=== PATIENT | female | born 1970 | race Caucasian/White ===

== ENCOUNTER 2024-08-21 13:36 | Emergency (ER) | payer MEDICAID, SELFPAY ==
[2024-08-21 13:38] VITALS: BMI 34.4
[2024-08-21 13:51] VITALS: BP 105/79; PULSE 108; RESP 18; TEMP 36.4; O2SAT 95
--- NOTE | 2024-08-21 13:52 | EDNOTE_ITS ---
ED Headache RME/HPI General Chief Complaint: Headache Stated Complaint: migraine Time Seen by Provider: 08/21/24 13:48 Arrival date/time: 08/21/24 13:36 54-year-old female with history of migraines presents emergency department complaint of headache patient reports is not the worst headache of her life patient reports no nausea or vomiting. Patient reports that she would like her headache cocktail and to be discharged home patient does not want any other further intervention Limitations: no limitations Related Data Home Medications ?Medication ?Instructions ?Recorded ?Confirmed montelukast 10 mg tablet 10 mg PO QPM 06/16/19 10/09/23 risperidone 1 mg tablet 1 tab PO HS 06/16/19 10/09/23 topiramate 50 mg tablet 50 mg PO HS 06/16/19 10/09/23 trazodone 50 mg tablet 100 mg PO HS 06/16/19 10/09/23 atorvastatin 20 mg tablet 20 mg PO QPM 01/28/22 10/09/23 Previous Rx's ?Medication ?Instructions ?Recorded amoxicillin 500 mg capsule 500 mg PO TID #30 caps 05/05/24 prednisone 50 mg tablet 50 mg PO QDAY #5 tabs 05/05/24 Allergies Allergy/AdvReac Type Severity Reaction Status Date / Time bee venom protein (honey bee) Allergy Severe Swelling Verified 05/05/24 16:37 of Lip/Tongue/Throat codeine Allergy Severe GI UPSET Verified 05/05/24 16:37 morphine Allergy Severe HALLUCINATE Verified 05/05/24 16:37 Review of Systems Review of Systems Systems Reviewed: All systems reviewed, normal except as documented Constitutional Constitutional: Reports system reviewed and no additional complaints, except as documented, Denies fever(s) and Reports headache(s) Eyes Eyes: Reports system reviewed and no additional complaints, except as documented and Denies blurry vision ENT Ears, Nose, Mouth, and Throat: Reports system reviewed and no additional complaints, except as documented, Denies dizziness, Reports headache(s), Denies nasal congestion and Denies nasal discharge Cardiovascular Cardiovascular: Reports system reviewed and no additional complaints, except as documented, Denies chest pain and Denies dyspnea Respiratory Respiratory: Reports system reviewed and no additional complaints, except as documented, Denies chest congestion, Denies cough and Denies dyspnea Gastrointestinal Gastrointestinal: Reports system reviewed and no additional complaints, except as documented and Denies abdominal pain Integumentary/Breasts Skin/Breast: Reports system reviewed and no additional complaints, except as documented and Denies rash Neurologic Neurologic: Reports system reviewed and no additional complaints, except as documented, Reports as per HPI, Denies dizziness and Reports headache(s) Past Medical History Past Medical History NEUROLOGIC: Negative Neurological Disorders CARDIAC: Negative Cardiac Disorders ED Exam General Limitations: Present no limitations General appearance: Present alert and in no apparent distress Head Head exam: Present atraumatic, normocephalic and normal inspection Eye Eye exam: Present normal appearance, PERRL and EOMI; Absent conjunctival injection ENT ENT exam: Present normal exam, normal oropharynx and mucous membranes moist Neck Neck exam: Present normal inspection, full ROM and trachea midline Chest Chest inspection: Present normal inspection and symmetric chest wall rise Respiratory Respiratory exam: Present normal lung sounds bilaterally; Absent respiratory distress Cardiovascular Cardiovascular exam: Present regular rate, normal rhythm and normal heart sounds Abdominal Exam Abdominal exam: Present soft and normal bowel sounds Extremities Exam Extremities exam: Present normal inspection and full ROM Back Exam Back exam: Present normal inspection and full ROM Neurological Exam Neurological exam: Present alert, oriented X3, CN II-XII intact, normal gait and reflexes normal; Absent motor sensory deficit Psychiatric Psychiatric exam: Present normal affect and normal mood Skin Skin exam: Present warm, dry, intact and normal color Course Quality Measures none Orders Category Date Time Status DiphenhydrAMINE INJ [Benadryl Inj] Med 08/21/24 13:51 Discontinued 25 mg IM X1 ONE Ketorolac Inj [Toradol Inj] Med 08/21/24 13:51 Discontinued 30 mg IM X1 ONE Promethazine Inj [Phenergan Inj] Med 08/21/24 13:51 Discontinued 12.5 mg IM X1 ONE Vital Signs Vital signs: Vital Signs Temperature 97.5 F 08/21/24 13:51 Pulse Rate 108 H 08/21/24 13:51 Respiratory Rate 18 08/21/24 13:51 Blood Pressure 105/79 08/21/24 13:51 Pulse Oximetry (%) 95 08/21/24 13:51 Oxygen Delivery Method Room Air 08/21/24 13:51 O2 saturation 95% room air within normal limits Headache MDM Narrative MDM Narrative:: 54-year-old female with history of migraines presents emergency department complaint of headache patient reports is not the worst headache of her life patient reports no nausea or vomiting. Patient reports that she would like her headache cocktail and to be discharged home patient does not want any other further intervention On exam patient well-appearing patient does not appear ill or toxic patient walks with steady gait: Patient has no abnormal neurological findings Patient medicated here discharged home Patient discharged home in no distress to follow-up with primary care doctor in the next 24 to 48 hours and for any worsening symptoms to return to the ER immediately Patient data External records reviewed:: [facility] previous records Clinical information provided by:: patient Social determinants that could affect healthcare access:: none Patient has the following chronic illnesses:: Headache How is presenting disease/condition affected by chronic disease/condition?: caused by Evaluation data The following diagnostics were reviewed and interpreted by me:: other (specify) (N/A) Lab and/or radiology exams considered but not ordered:: Consider not ordered Interpretation Summary: N/A Medications / Prescriptions Medications or Prescriptions considered but not ordered:: Given Medication administrations:: Medication Administration History Discontinued Medications Diphenhydramine HCl (Diphenhydramine Inj 50 Mg/Ml Vial) 25 mg IM X1 ONE Stop: 08/21/24 13:52 Last Admin: 08/21/24 13:55 Dose: 25 mg Documented By: CHANTEL Ketorolac Tromethamine (Ketorolac Inj 30 Mg/Ml Vial) 30 mg IM X1 ONE Stop: 08/21/24 13:52 Last Admin: 08/21/24 13:56 Dose: 30 mg Documented By: CHANTEL Promethazine HCl (Promethazine Inj 25 Mg/Ml Vial) 12.5 mg IM X1 ONE; Protocol Stop: 08/21/24 13:52 Last Admin: 08/21/24 14:04 Dose: 12.5 mg Documented By: CHANTEL Given Consultations Consultation(s) initiated? (list below): No Diagnosis Differential diagnosis headache: migraine, tension headache, subarachnoid hemorrhage and headache Most likely diagnosis given after review of the tests above:: Headache Admission Indicated Admission indicated?: not indicated Admission Request Was there a request for admission?: No Disposition Plan Disposition Plan: Discharge Discharge Attestation Discharge Attestation: The patient and all family members were given an opportunity to ask questions and understood the discharge instructions. Discharge instructions specifically effects, indications for sooner follow up or return to the emergency department, and the expected course of current diagnosis. Patient condition: Stable Discharge Plan Plan Patient Disposition: HOME (Self Care) Disposition Comment: Stable Prescriptions/Referrals Prescriptions/Med Rec: No Action trazodone 50 mg Tablet 100 mg PO HS montelukast 10 mg Tablet 10 mg PO QPM risperidone 1 mg Tablet 1 tab PO HS topiramate 50 mg Tablet 50 mg PO HS atorvastatin 20 mg Tablet 20 mg PO QPM prednisone 50 mg tablet 50 mg PO QDAY Qty: 5 0RF amoxicillin 500 mg capsule 500 mg PO TID Qty: 30 0RF Problem List Clinical Impression: Headache Patient/Caregiver Discharge Instructions Education Materials: Self-Care for Headaches Additional Instructions: Please follow up with your primary care doctor in the next 24-48hrs for any worsening symptoms return here immediately Print Language: Bengali Stand Alone Forms: Elsy Award Info., Patient Portal Info Letter MD Attestation MD Attestation The patient was seen by the midlevel practitioner. I, the co-signing physician, was present during the entire ER visit. While I did not physically examine the patient, I was available for consultation as needed.
[2024-08-21] MEDS: DiphenhydrAMINE INJ 50 MG/ML VIAL 25 MG IM (13:55)
[2024-08-21] MEDS: KETOROLAC INJ 30 MG/ML VIAL IM (13:56)
[2024-08-21] MEDS: PROMETHAZINE INJ 25 MG/ML VIAL 12.5 MG IM (14:04)
== END 2024-08-21 14:05 | disposition home or self-care (01) ==
LOC: SERX 14:07
PROVIDERS: Emergency Provider Emergency Medicine; PCP Family Medicine
DX: R51.9 Headache, unspecified (principal)
CPT/HCPCS: 96372; 99283; J1200; J1885; J2550

== ENCOUNTER 2024-09-04 10:42 | Emergency (ER) | payer MEDICAID, SELFPAY ==
[2024-09-04 11:29] VITALS: BP 112/82; PULSE 121; RESP 18; TEMP 36.7; O2SAT 95
[2024-09-04 11:51] VITALS: BMI 34.4
--- NOTE | 2024-09-04 11:58 | XR_ITS ---
Examination: CT abdomen and pelvis without contrast. Coronal 3-D reconstructions. Sagittal 2-D reconstructions. Date and time of exam:September 04, 2024 12:36 PM Indications: Left lower abdomen pain beginning yesterday CTDI: vol (mGy): 14.6 DLP: (mGycm): 757 Technique: Axial images of the abdomen have been obtained, 3 mm slice thickness Intravenous contrast material has not been administered. Low dose protocols were performed. One or more of the following dose reduction techniques were used; automated exposure control, adjustment of the mA and/or KV according to patient size, use of iterative reconstruction technique. Findings: Hepatomegaly 18 cm Diffuse fatty infiltration throughout the liver Absent gallbladder Spleen not enlarged No pancreatic or adrenal mass No renal or ureteral calculi, no hydronephrosis Aorta normal size No pericecal inflammatory change Colonic diverticulosis, no definite diverticulitis Moderate osteopenia No pelvic mass Impression: No renal or ureteral calculi, no hydronephrosis No CT findings of appendicitis or bowel obstruction Colonic diverticulosis, no diverticulitis No bladder mass or bladder calculi
--- NOTE | 2024-09-04 12:00 | EDNOTE_ITS ---
ED Back Injury Pain RME/HPI General Chief Complaint: Back Pain/Injury Stated Complaint: LEFT FLANK / LOWER BACK PAIN ESPECIALLY AFTER COUG Time Seen by Provider: 09/04/24 11:51 Arrival date/time: 09/04/24 10:42 RME / HPI RME / HPI Narrative: 54-year-old female patient with significant history of anxiety depression, came in for evaluation regarding leftflank pain. Onset of symptoms since yesterday as worsening left flank pain, described as pulsating, sharp pain, severity 10 out of 10 associated with nausea but denies any vomiting. Denies any fever denies any dysuria hematuria or other complaints. Patient denies any cough. No medication was tried at home. Patient's workup today all came back normal urinalysis no UTI no hematuria. CT scan of the abdomen and pelvis also came back unremarkable. Patient was given Toradol, [place] with significant improvement of pain. Results discussed with the patient. Related Data Home Medications ?Medication ?Instructions ?Recorded ?Confirmed montelukast 10 mg tablet 10 mg PO QPM 06/16/19 10/09/23 risperidone 1 mg tablet 1 tab PO HS 06/16/19 10/09/23 topiramate 50 mg tablet 50 mg PO HS 06/16/19 10/09/23 trazodone 50 mg tablet 100 mg PO HS 06/16/19 10/09/23 atorvastatin 20 mg tablet 20 mg PO QPM 01/28/22 10/09/23 Previous Rx's ?Medication ?Instructions ?Recorded amoxicillin 500 mg capsule 500 mg PO TID #30 caps 05/05/24 prednisone 50 mg tablet 50 mg PO QDAY #5 tabs 05/05/24 cyclobenzaprine 10 mg tablet 10 mg PO TID PRN muscle spasm #30 09/04/24 tabs ketorolac 10 mg tablet 10 mg PO Q6H PRN pain 5 days #20 09/04/24 tabs Allergies Allergy/AdvReac Type Severity Reaction Status Date / Time bee venom protein (honey bee) Allergy Severe Swelling Verified 09/04/24 10:44 of Lip/Tongue/Throat codeine Allergy Severe GI UPSET Verified 09/04/24 10:44 morphine Allergy Severe HALLUCINATE Verified 09/04/24 10:44 Review of Systems Review of Systems Narrative Review of Systems: Review of system reviewed and within normal limits except mentioned in HPI ED Exam Narrative Physical exam: VITAL SIGNS: Reviewed. GENERAL APPEARANCE: Alert and interactive, follows commands, no acute distress, HEAD AND FACE: Non-traumatic. ENT: PERRL, pink conjunctivitis, eyelid no trauma, Mucous membrane moist. NECK: Supple, nontender, no nuchal rigidity. CHEST: No tenderness, no crepitus, no paradoxical movement, no retractions. LUNGS: Clear, well ventilated, symmetric, no rales, no wheezing, no ronchi, no stridor, good breath sounds bilaterally. HEART: Regular rate, regular rhythm, no murmur, no gallops. ABDOMEN: Soft, positive bowel sounds, nondistended, no guarding, nontender, no rebound, no masses, left flank tenderness RECTAL: Deferred. GENITAL: Deferred. NEUROLOGICAL: Gross motor function intact sensory function intact, Appropriate for age. MUSCULOSKELETAL: low back nontender, full range of motion. EXTREMITIES: Nontender, full range of motion. SKIN: Color pink, dry, no rash, no lacerations, no abrasions, no contusions. LYMPHATICS: Deferred. Course Quality Measures none Orders Category Date Time Status CT abdomen pelvis wo con Stat Exams 09/04/24 11:58 Completed CBC [CBC] Stat Lab 09/04/24 12:17 Completed CMP [Comprehensive Metabolic Panel] Stat Lab 09/04/24 12:17 Completed Lipase Stat Lab 09/04/24 12:17 Completed PTT [Partial Thromboplastin Time] Stat Lab 09/04/24 12:17 Completed UA, C/S IF [Urinalysis, C/S if Indicated] Stat Lab 09/04/24 14:00 Completed Urine Culture Stat Lab 09/04/24 14:00 Received HYDROcodone/APAP 10/325 [[place] 10/325] Med 09/04/24 14:49 Discontinued 1 tab PO X1 ONE Ketorolac Inj [Toradol Inj] Med 09/04/24 12:02 Discontinued 30 mg IM X1 ONE Ketorolac Inj [Toradol Inj] Med 09/04/24 11:58 Discontinued 30 mg IVP X1 ONE Ondansetron Inj [Zofran Inj] Med 09/04/24 12:00 Discontinued 4 mg IV X1 ONE Ondansetron Odt [Zofran Odt] Med 09/04/24 12:03 Discontinued 4 mg PO X1 ONE Vital Signs Vital signs: Vital Signs Temperature 98.1 F 09/04/24 11:29 Pulse Rate 121 H 09/04/24 11:29 Respiratory Rate 18 09/04/24 11:29 Blood Pressure 112/82 09/04/24 11:29 Pulse Oximetry (%) 95 09/04/24 11:29 Oxygen Delivery Method Room Air 09/04/24 11:29 Back Pain / Injury MDM Narrative MDM Narrative:: 54-year-old female patient with significant history of anxiety depression, came in for evaluation regarding leftflank pain. Onset of symptoms since yesterday as worsening left flank pain, described as pulsating, sharp pain, severity 10 out of 10 associated with nausea but denies any vomiting. Denies any fever denies any dysuria hematuria or other complaints. Patient denies any cough. No medication was tried at home. Patient's workup today all came back normal urinalysis no UTI no hematuria. CT scan of the abdomen and pelvis also came back unremarkable. Patient was given Toradol, [place] with significant improvement of pain. Results discussed with the patient. Patient data External records reviewed:: None Clinical information provided by:: patient Social determinants that could affect healthcare access:: none Patient has the following chronic illnesses:: Anxiety, depression How is presenting disease/condition affected by chronic disease/condition?: uneffected by Evaluation data The following diagnostics were reviewed and interpreted by me:: lab results and radiology exam(s) Lab and/or radiology exams considered but not ordered:: None Interpretation Summary: Laboratory all came back unremarkable. CT scan of the abdomen and pelvis came back unremarkable also. Medications / Prescriptions Medications or Prescriptions considered but not ordered:: None Medication administrations:: Medication Administration History Discontinued Medications Hydrocodone Bitart/Acetaminophen (Hydrocodone/Apap 10/325 Tab) 1 tab PO X1 ONE Stop: 09/04/24 14:50 Ketorolac Tromethamine (Ketorolac Inj 30 Mg/Ml Vial) 30 mg IVP X1 ONE Stop: 09/04/24 11:59 Last Admin: 09/04/24 12:03 Dose: Not Given Documented By: NICOLE Non-Admin Reason: Cancelled by Provider Ketorolac Tromethamine (Ketorolac Inj 60 Mg/2 Ml Vial) 30 mg IM X1 ONE Stop: 09/04/24 12:03 Last Admin: 09/04/24 12:09 Dose: 30 mg Documented By: NICOLE Ondansetron HCl (Ondansetron Inj 2 Mg/Ml Inj 2 Ml) 4 mg IV X1 ONE; Protocol Stop: 09/04/24 12:01 Last Admin: 09/04/24 12:03 Dose: Not Given Documented By: NICOLE Non-Admin Reason: Cancelled by Provider Ondansetron HCl (Ondansetron Odt 4 Mg Tabrap) 4 mg PO X1 ONE; Protocol Stop: 09/04/24 12:04 Last Admin: 09/04/24 12:08 Dose: 4 mg Documented By: NICOLE Zofrfab, Toradol IM, and [place] Consultations Consultation(s) initiated? (list below): No Diagnosis Differential diagnosis back pain/injury: sciatica, renal colic and pyelone phritis Most likely diagnosis given after review of the tests above:: Left leg pain Admission Indicated Admission indicated?: not indicated Admission Request Was there a request for admission?: No Disposition Plan Disposition Plan: Discharge Discharge Attestation Discharge Attestation: The patient and all family members were given an opportunity to ask questions and understood the discharge instructions. Discharge instructions specifically effects, indications for sooner follow up or return to the emergency department, and the expected course of current diagnosis. Patient condition: Stable Discharge Plan Plan Patient Disposition: HOME (Self Care) Disposition Comment: Stable Prescriptions/Referrals Prescriptions/Med Rec: New cyclobenzaprine 10 mg tablet 10 mg PO TID PRN (Reason: muscle spasm) Qty: 30 0RF ketorolac 10 mg tablet 10 mg PO Q6H PRN (Reason: pain) 5 Days Qty: 20 0RF No Action trazodone 50 mg Tablet 100 mg PO HS montelukast 10 mg Tablet 10 mg PO QPM risperidone 1 mg Tablet 1 tab PO HS topiramate 50 mg Tablet 50 mg PO HS atorvastatin 20 mg Tablet 20 mg PO QPM prednisone 50 mg tablet 50 mg PO QDAY Qty: 5 0RF amoxicillin 500 mg capsule 500 mg PO TID Qty: 30 0RF Referrals: Dhara Mandel PA-C [Primary Care Provider] - In 1 week Problem List Clinical Impression: Acute left flank pain Patient/Caregiver Discharge Instructions Discharge Activity: activity as tolerated Education Materials: Understanding the Pain Response Additional Instructions: Thank you for the opportunity for serving you today. You are stable for discharged . You are advised to: Follow-up with your PCP in 1 to 2 days Return to ED for worsening of symptoms Increase oral fluids Take medication as prescribed Print Language: Yoruba Stand Alone Forms: Elsy Award Info., Patient Portal Info Letter DEYSI/[employer] Supervising Physician DEYSI/NOELLE Supervising Physician: MD Janet
[2024-09-04] MEDS: ONDANSETRON ODT 4 MG TABRAP PO (12:08)
[2024-09-04] MEDS: KETOROLAC INJ 60 MG/2 ML VIAL 30 MG IM (12:09)
[2024-09-04 12:42] LABS: Basophils % (Auto) 0 % (0-2.5); Eosinophils # (Auto) 0.1 Thou/mm3 (0.0-0.5); Eosinophils % (Auto) 1 % (0-10); Hemoglobin 14.3 g/dL (12.0-16.0); Immature Granulocytes % (Auto) 1 % (0-0); Immature Granulocytes Auto 0.05 Thou/mm3 (0.00-0.00); Lymphocytes # (Auto) 2.9 Thou/mm3 (1.0-4.8); Lymphocytes % (Auto) 27 % (10-50); Mean Corpuscular HGB Conc 33.3 g/dl (31.0-37.0); Mean Corpuscular Hemoglobin 30.4 pg (25.0-35.0); Mean Corpuscular Volume 91 fL (80-100); Monocytes # (Auto) 0.9 Thou/mm3 (0.0-0.8); Monocytes % (Auto) 8 % (0-12); Neutrophils % (Auto) 64 % (37-80); Nucleated Red Blood Cell % 0 /100 WBC (0); Platelet Count 237 Thou/mm3 (140-440); RDW Standard Deviation 42.9 fL (36.4-46.3); Red Blood Count 4.71 Miln/mm3 (4.00-5.20); White Blood Count 11.1 Thou/mm3 (3.6-11.0)
[2024-09-04 12:57] LABS: Alanine Aminotransferase 28 U/L (10-49); Albumin, Serum 5.1 gm/dL (3.5-5.0); Albumin/Globulin Ratio 2.6 (1.2-2.2); Alkaline Phosphatase 114 U/L (46-116); Anion Gap 7 (7-16); Aspartate Amino Transferase 23 U/L (0-34); BUN/Creatinine Ratio 14 Ratio (12-20); Bilirubin,Total 0.3 mg/dL (0.3-1.2); Blood Urea Nitrogen 11 mg/dL (9-23); Calcium 9.9 mg/dL (8.3-10.6); Calcium (Corrected) 9.9 mg/dL (8.5-10.1); Carbon Dioxide 26.5 mMol/L (20.0-31.0); Chloride 106 mMol/L (98-107); Creatinine (Component) 0.8 mg/dL (0.6-1.3); Estimated Creatinine Clearance 96.4 mL/min (>60); Glucose 108 mg/dL (74-106); Lipase 74 U/L (12-53); Osmolality,Calculated 277 (275-295); Potassium 4.4 mMol/L (3.4-5.1); Sodium 139 mMol/L (136-145); Total Protein 7.1 gm/dL (5.7-8.2); eGFR > 60 See Note
[2024-09-04 13:02] LABS: Partial Thromboplastin Time 24.6 Seconds (22.0-36.0)
[2024-09-04 14:25] LABS: Collection Type, Urine Clean Catch
[2024-09-04 14:32] LABS: Bacteria,Urine 2+; Bilirubin,Urine Negative (Negative); Blood,Urine Negative (Negative); Clarity,Urine Hazy (Clear/Hazy); Color,Urine Lt-Yellow (Lt Yel-Yel); Culture Indicated,Urine Yes; Glucose, Urine Negative (Negative); Ketones,Urine Negative (Negative); Leukocyte Esterase,Urine Negative (Negative); Nitrite,Urine Negative (Negative); PH,Urine 6.5 (5.0-7.0); Protein,Urine Negative (Neg - Trace); RBC,Urine 1 /hpf (0-3); Specific Gravity,Urine 1.013 (1.001-1.035); Squamous Epithelial Cell,Urine 5 /hpf (0-5); Urobilinogen,Urine Negative mg/dL (0.0-1.0); WBC,Urine 4 /hpf (0-5)
[2024-09-04] MEDS: HYDROcodone/APAP 10/325 TAB PO (15:09)
== END 2024-09-04 15:23 | disposition home or self-care (01) ==
PROVIDERS: Nurse Practitioner Family; Emergency Provider Emergency Medicine; PCP Physician Assistant
DX: R10.9 Unspecified abdominal pain (principal); M54.50 Low back pain, unspecified; F32.A Depression, unspecified; F41.9 Anxiety disorder, unspecified; R11.0 Nausea
CPT/HCPCS: 36415; 74176; 80053; 81001; 83690; 85025; 85730; 87077; 87086; 87186; 96372; 99284; J1885; Q0162; A9270

== ENCOUNTER 2024-09-11 13:49 | Emergency (ER) | payer MEDICAID, SELFPAY ==
[2024-09-11 14:23] VITALS: BP 106/74; PULSE 127; RESP 19; TEMP 36.8; O2SAT 96; BMI 34.4
--- NOTE | 2024-09-11 15:07 | EDNOTE_ITS ---
Upper Extremity Injury RME/HPI General Chief Complaint: Extremity Injury, Upper Stated Complaint: LEFT ARM PAIN Time Seen by Provider: 09/11/24 14:30 Arrival date/time: 09/11/24 13:49 Limitations: no limitations RME / HPI RME / HPI narrative: 54-year-old female presents to the emergency department after ground-level fall. Patient states she was walking across the parking lot back to her car. She states that she walked across a grassy area and did not notice a step. She fell, landing hard on her left forearm. Now with pain and a bump to the left wrist area. Patient states she did not strike her head, did not lose consciousness, and has no neck pain and no focal neurologic complaints. Patient states she does not know how she landed but whelmed up with on the left upper extremity pain. No other injuries. Related Data Home Medications ?Medication ?Instructions ?Recorded ?Confirmed montelukast 10 mg tablet 10 mg PO QPM 06/16/19 10/09/23 risperidone 1 mg tablet 1 tab PO HS 06/16/19 10/09/23 topiramate 50 mg tablet 50 mg PO HS 06/16/19 10/09/23 trazodone 50 mg tablet 100 mg PO HS 06/16/19 10/09/23 atorvastatin 20 mg tablet 20 mg PO QPM 01/28/22 10/09/23 Previous Rx's ?Medication ?Instructions ?Recorded amoxicillin 500 mg capsule 500 mg PO TID #30 caps 05/05/24 prednisone 50 mg tablet 50 mg PO QDAY #5 tabs 05/05/24 cyclobenzaprine 10 mg tablet 10 mg PO TID PRN muscle spasm #30 09/04/24 tabs ibuprofen 600 mg tablet 600 mg PO Q6H PRN pain #20 tabs 09/11/24 Allergies Allergy/AdvReac Type Severity Reaction Status Date / Time bee venom protein (honey bee) Allergy Severe Swelling Verified 09/04/24 10:44 of Lip/Tongue/Throat codeine Allergy Severe GI UPSET Verified 09/04/24 10:44 morphine Allergy Severe HALLUCINATE Verified 09/04/24 10:44 Review of Systems Review of Systems Narrative Review of Systems: GEN: No fever, no chills, no weight loss EYES: No discharge, no visual changes, no pain HEENT: No ear pain, no congestion, no sore throat PULM: No shortness of breath, no cough, no congestion CV: No chest pain, no dyspnea on exertion, no palpitations GI: No nausea, no vomiting, no diarrhea, no pain, no constipation : No frequency, no urgency, no dysuria MUSC/SKEL: +Left forearm pain with deformity, no back pain SKIN: No rash NEURO: No weakness, no headache Past Medical History Past Medical History NEUROLOGIC: Positive Migraine CARDIAC: Positive Cardiac Arrhythmia, Atrial Fibrillation and Hypercholesterolemia RESPIRATORY: Positive Chronic Obstructive Pulmonary Disease (COPD), Bronchitis and Pneumonia GASTROINTESTINAL: Positive Gastrointestinal Disorders, Gall Bladder Disease and Obesity REPRODUCTIVE: Positive Previous Pregnancies PSYCHO/SOCIAL: Positive Depression and Anxiety OTHER HISTORY: Positive Shingles and Chicken Pox Family History FAMILY HISTORY: Negative Family Psychiatric Problems, Family Respiratory Disorders, Family Cardiac Disorders, Family Gastrointestinal Problems, Family Cancer, Family Surgery or Family Anesthesia Reaction Surgical History SURGICAL: Positive Oral Surgery, Tonsillectomy and Abdominal Surgery Social History SMOKING STATUS: Light (< 1 pack/day) SECOND HAND EXPOSURE: No SUBSTANCE USE: does not use ED Exam General Limitations: Present no limitations General appearance: Present alert and in distress (appears to be in pain ) Head Head exam: Present atraumatic, normocephalic and normal inspection Eye Eye exam: Present normal appearance, PERRL and EOMI ENT ENT exam: Present normal exam, normal oropharynx and mucous membranes moist Neck Neck exam: Present normal inspection, full ROM and trachea midline Chest Chest inspection: Present normal inspection and symmetric chest wall rise Respiratory Respiratory exam: Present normal lung sounds bilaterally Cardiovascular Cardiovascular exam: Present regular rate, normal rhythm and normal heart sounds Abdominal Exam Abdominal exam: Present soft and normal bowel sounds Extremities Exam Extremities exam: Present other (swelling and tenderness to the left wrist area. Neurovascularly intact distally. There is no open wounds no active bleeding. No olecranon tenderness and no tenderness with flexion extension of the left elbow joint. There is no left shoulder tenderness or limited range of motion.) Back Exam Back exam: Present normal inspection and full ROM Neurological Exam Neurological exam: Present alert, oriented X3 and CN II-XII intact Psychiatric Psychiatric exam: Present normal affect and normal mood Skin Skin exam: Present warm, dry, intact and normal color Course Quality Measures none Orders Category Date Time Status Splint / Immobilizer STAT Care 09/11/24 16:47 Completed XR forearm LT 2V Stat Exams 09/11/24 15:09 Completed XR wrist comp LT min 3V Stat Exams 09/11/24 15:54 Completed HYDROcodone*/APAP 5/325 [[place] 5/325] Med 09/11/24 15:09 Discontinued 1 tab PO X1 ONE Reevaluation(s) Reevaluation #1: I have ordered a [place] and plain films and will reevaluate Time: 15:05 Reevaluation #2: We reviewed all the results, analysis, and treatment plans. Patient is amenable to discharge. Strict return precautions were outlined. Patient was discharged in stable condition. Time: 16:45 Vital Signs Vital signs: Vital Signs Temperature 98.2 F 09/11/24 14:23 Pulse Rate 127 H 09/11/24 14:23 Respiratory Rate 19 09/11/24 14:23 Blood Pressure 106/74 09/11/24 14:23 Pulse Oximetry (%) 96 09/11/24 14:23 Oxygen Delivery Method Room Air 09/11/24 14:23 Pulse ox is 96% on room air which is adequate. Procedures -ED Splint Fabrication: Clinician Made Type: Volar Reason for Splint: Optimal Positioning and Pain Management Circulation Distal to Splint: Yes Movement Distal to Splint: Yes Senation Distal to Splint: Yes Tolerance: Tolerates Well Extremity Injury MDM Narrative MDM Narrative:: IMirian am scribing for and in the presence of Dr. Montes. Patient data External records reviewed:: [facility] previous records (I reviewed ED visit on 09/04/2024) Clinical information provided by:: patient Social determinants that could affect healthcare access:: none Patient has the following chronic illnesses:: Afib, hyperlipidemia, COPD How is presenting disease/condition affected by chronic disease/condition?: uneffected by Evaluation data The following diagnostics were reviewed and interpreted by me:: radiology exam(s) Lab and/or radiology exams considered but not ordered:: None Interpretation Summary: Ordering Physician: Marty Montes MD Date of Service: 09/11/24 Procedure(s): XR forearm LT 2V Accession Number(s): [id number] cc: Chaz Wahl MD; NO PRIMARY/FAMILY,PHYSICIAN; Marty Montes MD~ Examination: Forearm, left, 2 views. Technique: Forearm, AP, lateral 2 views Date and time of exam: September 11, 2024 1452 hrs. Indications: Injury to the forearm today, forearm pain. Findings: Acute impacted fracture distal radial metaphysis No significant displacement No foreign body Impression: Acute impacted fracture distal radial metaphysis Dictated By: Chaz Wahl MD Signed By: <Electronically signed by Chaz Wahl MD in OV> 09/11/24 1609 Ordering Physician: Marty Montes MD Date of Service: 09/11/24 Procedure(s): XR wrist comp LT min 3V Accession Number(s): [id number] cc: Chaz Wahl MD; NO PRIMARY/FAMILY,PHYSICIAN; Marty Montes MD~ Examination: Wrist, left 3 views Technique: Wrist AP, oblique, lateral 3 views Date and time of exam: September 11, 2024 1614 hrs. Indications: Patient fell today with injury to the wrist, wrist pain. Findings: Acute comminuted impacted fracture distal radial metaphysis No significant displacement No dislocation Impression: Acute impacted comminuted fracture distal radial metaphysis Dictated By: Chaz Wahl MD Signed By: <Electronically signed by Chaz Wahl MD in OV> 09/11/24 1752 Medications / Prescriptions Medications or Prescriptions considered but not ordered:: None Medication administrations:: Medication Administration History Discontinued Medications Hydrocodone Bitart/Acetaminophen (Hydrocodone/[place] 5/325 Tablet) 1 tab PO X1 ONE Stop: 09/11/24 15:10 Last Admin: 09/11/24 15:16 Dose: 1 tab Documented By: OA See above Consultations Consultation(s) initiated? (list below): No Diagnosis Upper Extremity Injury Differential Diagnosis: sprain and strain of wrist, fracture of wrist, dislocation of shoulder and fracture of humerus Most likely diagnosis given after review of the tests above:: Distal radius fracture, left Admission Indicated Admission indicated?: not indicated Admission Request Was there a request for admission?: No Disposition Plan Disposition Plan: Discharge Discharge Attestation Discharge Attestation: The patient and all family members were given an opportunity to ask questions and understood the discharge instructions. Discharge instructions specifically effects, indications for sooner follow up or return to the emergency department, and the expected course of current diagnosis. Patient condition: Stable Discharge Plan Plan Patient Disposition: HOME (Self Care) Disposition Comment: Stable for discharge Patient condition on transfer: Stable Prescriptions/Referrals Prescriptions/Med Rec: New ibuprofen 600 mg tablet 600 mg PO Q6H PRN (Reason: pain) Qty: 20 0RF No Action trazodone 50 mg Tablet 100 mg PO HS montelukast 10 mg Tablet 10 mg PO QPM risperidone 1 mg Tablet 1 tab PO HS topiramate 50 mg Tablet 50 mg PO HS atorvastatin 20 mg Tablet 20 mg PO QPM cyclobenzaprine 10 mg tablet 10 mg PO TID PRN (Reason: muscle spasm) Qty: 30 0RF prednisone 50 mg tablet 50 mg PO QDAY Qty: 5 0RF amoxicillin 500 mg capsule 500 mg PO TID Qty: 30 0RF Referrals: No Primary/Family,Physician [Primary Care Provider] - In 1 week Shen Leal MD [Physician] - In 1 week Problem List Clinical Impression: Distal radius fracture, right Patient/Caregiver Discharge Instructions Discharge Activity: activity as tolerated Education Materials: How Bones Heal, Wrist Fracture, ED Forearm Fx Wo Redu Additional Instructions: You have something called a distal radial fracture. The radius is one of the bones in your forearm. When he fell down today you broke this bone. You should follow-up with the bone specialist, Dr. Leal. Information for Dr. Leal's office is included above. You should follow-up with your primary care doctor in the next several days as well Please return to the ER for any worsening or any further medical problems Print Language: Azeri Stand Alone Forms: Elsy Award Info., Patient Portal Info Letter
[2024-09-11] MEDS: HYDROcodone/APAP 5/325 TABLET 1 TAB PO (15:16)
--- NOTE | 2024-09-11 15:54 | XR_ITS ---
Examination: Wrist, left 3 views Technique: Wrist AP, oblique, lateral 3 views Date and time of exam: September 11, 2024 1614 hrs. Indications: Patient fell today with injury to the wrist, wrist pain. Findings: Acute comminuted impacted fracture distal radial metaphysis No significant displacement No dislocation Impression: Acute impacted comminuted fracture distal radial metaphysis
== END 2024-09-11 17:26 | disposition home or self-care (01) ==
PROVIDERS: Emergency Provider Emergency Medicine
DX: S52.592A Other fractures of lower end of left radius, initial encounter for closed fracture (principal); W18.30XA Fall on same level, unspecified, initial encounter; Y93.01 Activity, walking, marching and hiking
CPT/HCPCS: 29125; 73090; 73110; 99283; A9270

== ENCOUNTER → 2024-09-17 | Outpatient (CLI) | payer MEDICAID, SELFPAY ==
--- NOTE | 2024-09-17 16:30 | XR_ITS ---
Examination: Wrist, left 3 views Technique: Wrist AP, oblique, lateral 3 views Date and time of exam: September 17, 2024 1637 hrs. Indications: Acute fracture distal radial metaphysis September 11, 2024 Findings: Early healing fracture distal radial metaphysis Stable and satisfactory alignment Impression: Early healing fracture distal radial metaphysis with stable and satisfactory alignment
== END | disposition home or self-care (01) ==
PROVIDERS: PCP Physician Assistant; Referring Provider Orthopaedic Surgery; Visit Provider Orthopaedic Surgery
DX: S52.532A Colles' fracture of left radius, initial encounter for closed fracture (principal); X58.XXXA Exposure to other specified factors, initial encounter
CPT/HCPCS: 73110

== ENCOUNTER → 2024-10-04 | Outpatient (CLI) | payer MEDICAID, SELFPAY ==
--- NOTE | 2024-10-04 | XR_ITS ---
Examination: Wrist, left 3 views Technique: Wrist AP, oblique, lateral 3 views Date and time of exam: October 04, 2024 1230 hours Comparison 04/17/2024 INDICATIONS: Left wrist fracture 3 weeks ago. FINDINGS: Partial and significant healing fracture distal radius with stable and satisfactory alignment IMPRESSION: Partial and significant healing fracture distal radius with stable and satisfactory alignment
== END | disposition home or self-care (01) ==
LOC: CDIM 11:48
PROVIDERS: Referring Provider Orthopaedic Surgery; Visit Provider Orthopaedic Surgery
DX: S52.532A Colles' fracture of left radius, initial encounter for closed fracture (principal); X58.XXXA Exposure to other specified factors, initial encounter
CPT/HCPCS: 73110

== ENCOUNTER → 2024-10-27 | Outpatient (CLI) | payer MEDICAID, SELFPAY ==
--- NOTE | 2024-10-27 | XR_ITS ---
Examination: Wrist, left 3 views Technique: Wrist AP, oblique, lateral 3 views Date and time of exam: October 27, 2024 1209 hours INDICATIONS: Acute comminuted impacted fracture distal radial metaphysis September 11, 2024 FINDINGS: Significant healing fracture distal radial metaphysis with stable and satisfactory alignment IMPRESSION: Significant healing fracture distal radial metaphysis with stable and satisfactory alignment
== END | disposition home or self-care (01) ==
LOC: CDIM 11:27
PROVIDERS: Referring Provider Orthopaedic Surgery; Visit Provider Orthopaedic Surgery
DX: S52.532A Colles' fracture of left radius, initial encounter for closed fracture (principal); X58.XXXA Exposure to other specified factors, initial encounter
CPT/HCPCS: 73110

== ENCOUNTER 2025-02-03 15:41 | Emergency (ER) | payer MEDICAID, SELFPAY ==
[2025-02-03 15:54] VITALS: BP 111/64; PULSE 89; RESP 18; TEMP 36.9; O2SAT 99
[2025-02-03 15:55] VITALS: BMI 30.4
--- NOTE | 2025-02-03 16:03 | PD.EDHA ---
ED Headache RME/HPI General Chief Complaint: Head Injury Stated Complaint: MIGRAINE. HX OF MIGRAINES Time Seen by Provider: 02/03/25 15:52 Arrival date/time: 02/03/25 15:41 RME / HPI RME / HPI Narrative: 54-year-old female patient with significant history of migraine headache, came in for evaluation regarding headache onset of symptoms, earlier this morning patient woke up with it described as pulsating, severity severe. Associated with nausea and vomiting. Patient told me that she had CT scan done last week for the same headache. And it was negative. Patient is denying any head trauma denies any fall denies any slurring of speech denies any upper or lower extremity weakness. Patient headache is not a thunderclap type of headache according to her. Patient took Motrin with mild relief. Related Data Home Medications ?Medication ?Instructions ?Recorded ?Confirmed montelukast 10 mg tablet 10 mg PO QPM 06/16/19 10/09/23 risperidone 1 mg tablet 1 tab PO HS 06/16/19 10/09/23 topiramate 50 mg tablet 50 mg PO HS 06/16/19 10/09/23 trazodone 50 mg tablet 100 mg PO HS 06/16/19 10/09/23 atorvastatin 20 mg tablet 20 mg PO QPM 01/28/22 10/09/23 Previous Rx's ?Medication ?Instructions ?Recorded amoxicillin 500 mg capsule 500 mg PO TID #30 caps 05/05/24 prednisone 50 mg tablet 50 mg PO QDAY #5 tabs 05/05/24 cyclobenzaprine 10 mg tablet 10 mg PO TID PRN muscle spasm #30 09/04/24 tabs ibuprofen 600 mg tablet 600 mg PO Q6H PRN pain #20 tabs 09/11/24 rizatriptan 10 mg tablet (Maxalt) 10 mg PO Q2H PRN migraine headache 02/03/25 #30 tabs Allergies Allergy/AdvReac Type Severity Reaction Status Date / Time bee venom protein (honey bee) Allergy Severe Swelling Verified 02/03/25 15:42 of Lip/Tongue/Throat codeine Allergy Severe GI UPSET Verified 02/03/25 15:42 morphine Allergy Severe HALLUCINATE Verified 02/03/25 15:42 Review of Systems Review of Systems Narrative Review of Systems: Review of system reviewed and within normal limits except mentioned in HPI ED Exam Narrative Physical exam: VITAL SIGNS: Reviewed. GENERAL APPEARANCE: Alert and interactive, follows commands, no acute distress, HEAD AND FACE: Non-traumatic. ENT: PERRL, pink conjunctivitis, eyelid no trauma, Mucous membrane moist. NECK: Supple, nontender, no nuchal rigidity. CHEST: No tenderness, no crepitus, no paradoxical movement, no retractions. LUNGS: Clear, well ventilated, symmetric, no rales, no wheezing, no ronchi, no stridor, good breath sounds bilaterally. HEART: Regular rate, regular rhythm, no murmur, no gallops. ABDOMEN: Soft, positive bowel sounds, nondistended, no guarding, nontender, no rebound, no masses, RECTAL: Deferred. GENITAL: Deferred. NEUROLOGICAL: Gross motor function intact sensory function intact, Appropriate for age. MUSCULOSKELETAL: low back nontender, full range of motion. EXTREMITIES: Nontender, full range of motion. SKIN: Color pink, dry, no rash, no lacerations, no abrasions, no contusions. LYMPHATICS: Deferred. Course Quality Measures none Orders Category Date Time Status DiphenhydrAMINE INJ [Benadryl Inj] Med 02/03/25 16:02 Discontinued 50 mg IVP X1 ONE Ketorolac Inj [Toradol Inj] Med 02/03/25 16:02 Discontinued 30 mg IVP X1 ONE Metoclopramide Inj [Reglan Inj] Med 02/03/25 16:02 Discontinued 10 mg IVP X1 ONE Ringers Lactated 1000 ml [Lactated Ringers] 1,000 ml Med 02/03/25 16:02 Discontinued IV 999 mls/hr Vital Signs Vital signs: Vital Signs Temperature 98.4 F 02/03/25 15:54 Pulse Rate 89 02/03/25 15:54 Respiratory Rate 18 02/03/25 15:54 Blood Pressure 111/64 02/03/25 15:54 Pulse Oximetry (%) 99 02/03/25 15:54 Oxygen Delivery Method Room Air 02/03/25 15:54 Headache MDM Narrative MDM Narrative:: 54-year-old female patient with significant history of migraine headache, came in for evaluation regarding headache onset of symptoms, earlier this morning patient woke up with it described as pulsating, severity severe. Associated with nausea and vomiting. Patient told me that she had CT scan done last week for the same headache. And it was negative. Patient is denying any head trauma denies any fall denies any slurring of speech denies any upper or lower extremity weakness. Patient headache is not a thunderclap type of headache according to her. Patient took Motrin with mild relief. Patient received IV fluids, Toradol, Benadryl and Reglan with complete resolution of headache Patient appears nontoxic and hemodynamically stable. Patient discharged home and instructed to follow-up with primary care provider in 24 to 48 hours. Instructed to return to the emergency department immediately if worsening of symptoms Patient data External records reviewed:: None Clinical information provided by:: patient Social determinants that could affect healthcare access:: none Patient has the following chronic illnesses:: History of migraine headache How is presenting disease/condition affected by chronic disease/condition?: exacerbated by Evaluation data The following diagnostics were reviewed and interpreted by me:: other (specify) (None) Lab and/or radiology exams considered but not ordered:: None Interpretation Summary: None Medications / Prescriptions Medications or Prescriptions considered but not ordered:: None Medication administrations:: Medication Administration History Discontinued Medications Diphenhydramine HCl (Diphenhydramine Inj 50 Mg/Ml Vial) 50 mg IVP X1 ONE Stop: 02/03/25 16:03 Last Admin: 02/03/25 16:38 Dose: 50 mg Documented By: DO Lactated Ringer's (Lactated Ringers) 1,000 mls @ 999 mls/hr IV .Q1H1M ONE Stop: 02/03/25 17:02 Last Infusion: 02/03/25 17:14 Dose: Infused Documented By: Admin: 02/03/25 16:31 Dose: 999 mls/hr Documented By: KF Ketorolac Tromethamine (Ketorolac Inj 30 Mg/Ml Vial) 30 mg IVP X1 ONE Stop: 02/03/25 16:03 Last Admin: 02/03/25 16:37 Dose: 30 mg Documented By: DO Metoclopramide HCl (Metoclopramide Inj 5 Mg/Ml Vial 2 Ml) 10 mg IVP X1 ONE; Protocol Stop: 02/03/25 16:03 Last Admin: 02/03/25 16:38 Dose: 10 mg Documented By: DO Reglan Toradol IV fluids. Benadryl Consultations Consultation(s) initiated? (list below): No Diagnosis Differential diagnosis headache: migraine, tension headache and headache Most likely diagnosis given after review of the tests above:: Migraine headache Admission Indicated Admission indicated?: not indicated Admission Request Was there a request for admission?: No Disposition Plan Disposition Plan: Discharge Discharge Attestation Discharge Attestation: The patient and all family members were given an opportunity to ask questions and understood the discharge instructions. Discharge instructions specifically effects, indications for sooner follow up or return to the emergency department, and the expected course of current diagnosis. Patient condition: Stable Discharge Plan Plan Patient Disposition: HOME (Self Care) Discharge Disposition comment: stable Prescriptions/Referrals Prescriptions/Med Rec: New rizatriptan [Maxalt] 10 mg tablet 10 mg PO Q2H PRN (Reason: migraine headache) Qty: 30 0RF Rx Instructions: do not exceed 3 doses per 24 hrs No Action trazodone 50 mg Tablet 100 mg PO HS montelukast 10 mg Tablet 10 mg PO QPM risperidone 1 mg Tablet 1 tab PO HS topiramate 50 mg Tablet 50 mg PO HS atorvastatin 20 mg Tablet 20 mg PO QPM cyclobenzaprine 10 mg tablet 10 mg PO TID PRN (Reason: muscle spasm) Qty: 30 0RF prednisone 50 mg tablet 50 mg PO QDAY Qty: 5 0RF amoxicillin 500 mg capsule 500 mg PO TID Qty: 30 0RF ibuprofen 600 mg tablet 600 mg PO Q6H PRN (Reason: pain) Qty: 20 0RF Referrals: Eagle Liao MD [Primary Care Provider] - In 1 week Problem List Clinical Impression: Migraine Patient/Caregiver Discharge Instructions Discharge Activity: activity as tolerated Education Materials: Headache Migraine Triggers Prevent Additional Instructions: Thank you for the opportunity for serving you today. You are stable for discharged . You are advised to: Follow-up with your PCP in 1 to 2 days Return to ED for worsening of symptoms Increase oral fluids Print Language: Croatian Stand Alone Forms: Elsy Award Info., Patient Portal Info Letter
[2025-02-03] MEDS: RINGERS LACTATED 1000 ML 1,000 ML 999 ML IV (16:31)
[2025-02-03] MEDS: KETOROLAC INJ 30 MG/ML VIAL IVP (16:37)
[2025-02-03] MEDS: METOCLOPRAMIDE INJ 5 MG/ML VIAL 2 ML 10 MG IVP (16:38)
[2025-02-03] MEDS: DiphenhydrAMINE INJ 50 MG/ML VIAL IVP (16:38)
== END 2025-02-03 17:32 | disposition home or self-care (01) ==
PROVIDERS: Emergency Provider Emergency Medicine; PCP Family Medicine
DX: G43.909 Migraine, unspecified, not intractable, without status migrainosus (principal)
CPT/HCPCS: 96374; 96375; 99284; J1200; J1885; J2765; J7120

== ENCOUNTER 2025-07-09 11:54 | Emergency (ER) | payer MEDICAID, SELFPAY ==
[2025-07-09 11:55] VITALS: BMI 34.4
[2025-07-09 12:56] VITALS: BP 95/59; PULSE 119; RESP 19; TEMP 37.1; O2SAT 95
--- NOTE | 2025-07-09 14:52 | EDNOTE_ITS ---
ED General RME/HPI General Chief complaint: General Adult/Misc Complain Stated complaint: RECTUM PAIN [id number]; HX ANAL FISSURES Time Seen by Provider: 07/09/25 12:06 Arrival date/time: 07/09/25 11:54 This is a 55-year-old female with complaints of rectal pain on and off for the last 6 months. Patient was seen by GI specialist and was told that she had anal fissures. Patient states that they did a Tiny anal scope in the doctor's office and was told that she did not have hemorrhoids but she had anal fissures. Patient was prescribed hydrocortisone suppositories and she said it made it worse. Patient denies any other symptoms. Patient denies fever or chills. Patient denies any abdominal pain. Related Data Home Medications ?Medication ?Instructions ?Recorded ?Confirmed montelukast 10 mg tablet 10 mg PO QPM 06/16/19 risperidone 1 mg tablet 1 tab PO HS 06/16/19 4 topiramate 50 mg tablet 50 mg PO HS 06/16/19 4 trazodone 50 mg tablet 100 mg PO HS 06/16/19 atorvastatin 20 mg tablet 20 mg PO QPM 01/28/22 Previous Rx's ?Medication ?Instructions ?Recorded amoxicillin 500 mg capsule 500 mg PO TID #30 caps 04/07 10/29 prednisone 50 mg tablet 50 mg PO QDAY #5 tabs cyclobenzaprine 10 mg tablet 10 mg PO TID PRN muscle s pasm #30 09/04/24 tabs ibuprofen 600 mg tablet 600 mg PO Q6H PRN pain #20 t abs 09/11/24 rizatriptan 10 mg tablet (Maxalt) 10 mg PO Q2H PRN petra maxim headache 02/03/25 #30 tabs Allergies Allergy/AdvReac Type Severity Reaction Status Date / Time bee venom protein (honey bee) Allergy Severe Swelling Verified 07/09/25 11:59 of Lip/Tongue/Throat codeine Allergy Severe GI UPSET Verified 07/09/25 11:59 morphine Allergy Severe HALLUCINATE Verified 07/09/25 11:59 Review of Systems Review of Systems Systems Reviewed: All systems reviewed, normal except as documented Past Medical History Past Medical History NEUROLOGIC: Positive Migraine CARDIAC: Positive Cardiac Arrhythmia, Atrial Fibrillation and Hyperchol esterolemia RESPIRATORY: Positive Chronic Obstructive Pulmonary Disease (COPD), Bronchitis and Pneumonia GASTROINTESTINAL: Positive Gastrointestinal Disorders, Gall Bladder Disease and Obesity REPRODUCTIVE: Positive Previous Pregnancies PSYCHO/SOCIAL: Positive Depression and Anxiety OTHER HISTORY: Positive Shingles and Chicken Pox Family History FAMILY HISTORY: Negative Family Psychiatric Problems, Family Respiratory Disorders, Family Cardiac Disorders, Family Gastrointestinal Problems, Family Cancer, Family Surgery or Family Anesthesia Reaction Surgical History SURGICAL: Positive Oral Surgery, Tonsillectomy and Abdominal Surgery Social History SMOKING STATUS: Light (< 1 pack/day) SECOND HAND EXPOSURE: No SUBSTANCE USE: does not use ED Exam Narrative Physical exam: VITAL SIGNS: Reviewed. GENERAL APPEARANCE: Alert and interactive, follows commands, no acute distress HEAD AND FACE: Non-traumatic. ENT: PERRL, conjuctiva pink and clear, eyelid no trauma, Mucous membrane moist. NECK: Supple, nontender, no nuchal rigidity. CHEST: No tenderness, no crepitus, no paradoxical movement, no retractions. LUNGS: breathing even and unlabored HEART: Regular rate, cap refill less than 2 seconds ABDOMEN: Soft, nondistended, no guarding, nontender rectal exam: no palpable masses/hemmrroids outside rectum/anus look irriated but no fissures appreciated NEUROLOGICAL: Gross motor function intact sensory function intact, Appropriate for age. MUSCULOSKELETAL: low back nontender, full range of motion. EXTREMITIES: No redness no swelling no skin breakdown on bilateral foot and leg. Distal neurovascular status intact bilateral foot SKIN: Color pink, dry, no rash, no lacerations, no abrasions, no contusions. Course Quality Measures none Orders Category Date Time Status Ibuprofen Tab [Motrin Tab] Med 07/09/25 14:52 Discontinued 800 mg PO X1 ONE Lidocaine Jelly 2% Urojet [Xylocaine Jelly 2% Urojet] Med 07/09/25 14:44 Discontinued See Dose Instructions TOP X1 ONE Vital Signs Vital signs: Vital Signs Temperature 98.7 F 07/09/25 12:56 Pulse Rate 119 H 07/09/25 12:56 Respiratory Rate 19 07/09/25 12:56 Blood Pressure 95/59 L 07/09/25 12:56 Pulse Oximetry (%) 95 07/09/25 12:56 Oxygen Delivery Method Room Air 07/09/25 12:56 Discharge Plan Plan Patient Disposition: HOME (Self Care) Patient condition on transfer: Stable Prescriptions/Referrals Prescriptions/Med Rec: No Action trazodone 50 mg Tablet 100 mg PO HS montelukast 10 mg Tablet 10 mg PO QPM risperidone 1 mg Tablet 1 tab PO HS topiramate 50 mg Tablet 50 mg PO HS atorvastatin 20 mg Tablet 20 mg PO QPM cyclobenzaprine 10 mg tablet 10 mg PO TID PRN (Reason: muscle spasm) Qty: 30 0RF rizatriptan [Maxalt] 10 mg tablet 10 mg PO Q2H PRN (Reason: migraine headache) Qty: 30 0RF Rx Instructions: do not exceed 3 doses per 24 hrs prednisone 50 mg tablet 50 mg PO QDAY Qty: 5 0RF amoxicillin 500 mg capsule 500 mg PO TID Qty: 30 0RF ibuprofen 600 mg tablet 600 mg PO Q6H PRN (Reason: pain) Qty: 20 0RF Referrals: Eagle Liao MD [Primary Care Provider, Family Practice] - In 1 week Problem List Clinical Impression: Anal irritation, Anal fissure Patient/Caregiver Discharge Instructions Discharge Activity: activity as tolerated Education Materials: Understanding Anal Fissures Additional Instructions: Use ointment around area to help soothe pain. Try sitz bath baths. Make sure she is patient having regular bowel movements can use stool softeners like Senokot. Come back to the emergency room symptoms change or worsen. Make an appoint with primary provider in 1 to 2 days. Print Language: Citizen [place] Stand Alone Forms: Elsy Award Info., Patient Portal Info Letter PA/RESIDENT SERVICES MANAGER Supervising Physician PA/RESIDENT SERVICES MANAGER Supervising Physician: javier MAYNARD Narrative MDM hospital course (for use when minimal MDM required): I discussed case with Dr. Richardson. Patient nonfebrile appears nontoxic. This is been going on and off for the past 6 months. Patient has already been told in the past that she had anal fissures. I did examine patient and do a rectal exam. Patient does have some irritation mild if any to rectal area and pain when you enter her rectum. For now we will use a Uro-Jet. I did discuss patient at length to make sure she is taking stool softeners. I also discussed sitz bath's with [place] bonnie. If the Uro-Jet works then what we will do is what will give her some topical lidocaine medication she can topically place. Clinical Information Provided by: patient Medical Records reviewed [facility] Meds/Rx considered, not ordered None Labs/Rad/Tests considered, not ordered None Chronic Illness/Social Conditions which may negatively complicate care or outcome(s)-explain: None or not applicable Labs Labs: none Imaging Imaging interpretation: none Medication Administration(s) none Medication Administration History Discontinued Medications Ibuprofen (Ibuprofen Tab 400 Mg Tablet) 800 mg PO X1 ONE Stop: 07/09/25 14:53 Last Admin: 07/09/25 14:59 Dose: 800 mg Documented By: CHRISTINE Lidocaine HCl (Lidocaine Jelly 2% (Urojet) 10 Ml Tube) 0 ml TOP X1 ONE Stop: 07/09/25 14:45 Last Admin: 07/09/25 14:59 Dose: 2 ml Documented By: CHRISTINE
[2025-07-09] MEDS: LIDOCAINE JELLY 2% (Urojet) 10 ML TUBE TOP (14:59)
[2025-07-09] MEDS: IBUPROFEN TAB 400 MG TABLET 800 MG PO (14:59)
== END 2025-07-09 16:18 | disposition home or self-care (01) ==
PROVIDERS: Emergency Provider Emergency Medicine; PCP Family Medicine
DX: K60.2 Anal fissure, unspecified (principal); I48.91 Unspecified atrial fibrillation; E78.00 Pure hypercholesterolemia, unspecified; J44.9 Chronic obstructive pulmonary disease, unspecified; F17.210 Nicotine dependence, cigarettes, uncomplicated
CPT/HCPCS: 99283; A9270

== ENCOUNTER → 2025-09-14 | Outpatient (CLI) | payer MEDICAID, SELFPAY ==
--- NOTE | 2025-09-14 09:30 | XR_ITS ---
Examination: CT chest, without intravenous contrast. Sagittal and coronal 2-D reconstructions. Exam date and time: September 14, 2025, 0945 hours, comparison November 28, 2021 INDICATIONS: 16 mm pulmonary nodule right upper lobe on CT chest November 28, 2021, nodule biopsy 8 February 01, 2022, smoking history 35 years CTDI:vol (mGy) 16.2 DLP: (mGycm) 548 Technique: Multiple 3.0 mm axial sections of the chest to been obtained. Bone and lung density settings are obtained. Sagittal and coronal 2-D reconstructions have been obtained. Low dose protocols were performed. One or more of the following dose reduction techniques were used; automated exposure control, adjustment of the mA and/or KV according to patient size, use of iterative reconstruction technique. Findings: No thoracic aortic aneurysm dilatation Pulmonary artery segments are not enlarged. No paratracheal tracheobronchial or bronchopulmonary adenopathy 23 mm spiculated pulmonary nodule right upper lobe No pneumonia or pulmonary edema No pleural disease Severe diffuse fatty infiltration throughout the liver Spleen is not enlarged No adrenal mass Prominent osteopenia IMPRESSION: Spiculated pulmonary mass right upper lobe now measures 23 mm compared to [address] chest November 28, 2021, highest on the differential listed as lung cancer, this mass is amenable to rebiopsy under CT guidance
== END | disposition home or self-care (01) ==
PROVIDERS: PCP Nurse Practitioner Family; Referring Provider Nurse Practitioner Family; Visit Provider Nurse Practitioner Family
DX: R91.1 Solitary pulmonary nodule (principal)
CPT/HCPCS: 71250